=== PATIENT | female | born 1990 | race Hispanic/Latino ===

== ENCOUNTER 2018-04-15 06:31 | Day surgery (SDC) | payer BC ==
[2018-04-14 16:53] LABS: Urine Appearance CLEAR; Urine Bilirubin NEGATIVE (NEG); Urine Blood NEGATIVE (NEG); Urine Color YELLOW; Urine Glucose NEGATIVE (NEG); Urine Protein NEGATIVE (NEG); Urine Specific Gravity >=1.030 (1.005-1.030); Urine pH 7.5 (5.0-7.0)
[2018-04-14 16:56] LABS: Urine Microscopic Reflex NO UMIC
[2018-04-14 16:58] LABS: Absolute Lymphocytes (CBC) 1.8 K/uL (0.7-4.9); Absolute Monocytes 0.6 K/uL (0.1-1.3); Absolute Neutrophil 4.7 K/uL (1.8-8.0); Basophils % 0.4 % (0-1.3); Eosinophils % 1.2 % (0-4.4); Hematocrit 39.2 % (36.0-45.0); MCH 27.5 pg (27.0-35.0); MCV 81.4 fL (80-100); MPV 10.3 fL (7.6-11.3); Monocytes % 8.2 % (3.3-12.3); RBC Red Blood Cell Count 4.81 M/uL (3.86-4.86)
[2018-04-14 16:59] LABS: Specific Gravity > 1.030 (1.005-1.030)
[2018-04-14 17:01] LABS: Protime INR 1.05
--- NOTE | 2018-04-14 17:55 | PREOPHP ---
Date of Admission: 04/14/2018 The patient has an impacted IUD that has been possible to get out into the office. We are taking her first to surgery for hysteroscopy, possible D and C. Full discussion about infection, blood loss, a nesthetic complications, injury to bladder, bowel, ureter, postoperative complications, clots in the legs. The patient knows fully well this does not constitute all the possible problems that could occ ur during or following surgery. After the procedure, the patient wants to get , so she will wait 1 month, use condoms for control, and then try to get after a month. Family History: Mother with breast cancer at the age of 49, this has been discussed with the patient . Maternal grandmother with hypertension and diabetes. Allergies: THE PATIENT HAS NO ALLERGIES. Medications: No medicines prior to admission. Past Surgical History: She has had a LEEP procedure before, but otherwise nothing else. Social History: She does not smoke. Physical Examination: HEENT: Clear. Pupils equal, round, and reactive to light and accommodation. Conjunctivae well perf used. No oral, lingual, or buccal lesions. Chest and Lungs: Clear. Heart: Without murmurs, thrills, heaves, or rubs. Breasts: Not examined. Abdomen: Soft. Uterus is small, firm, freely mobile, nontender. Both adnexa clear. Laminaria tent inserted and packing placed. Assessment And Plan: We will proceed with hysteroscopy, possible D and C tomorrow for removal of IUD . MELINA/NIKOLAS Voice ID: [id number]
[2018-04-15] MEDS ORDERED: Ringers Lactate 1,000 ML IV ONE (06:44)
[2018-04-15] MEDS ORDERED: CEFAZOLIN/SWI 1gm 1 GM/10 ML SYR ONE (06:45)
[2018-04-15] MEDS ORDERED: PROPOFOL 200 MG/20 ML VIAL IV ONE (07:04)
[2018-04-15] MEDS ORDERED: FENTANYL CITR 100 MCG/2 ML ONE (07:04)
[2018-04-15] MEDS ORDERED: MIDAZOLAM HCL 2 MG/2 ML INJ ONE (07:04)
[2018-04-15] MEDS ORDERED: LIDOCAINE 1% MPF 5 ML VIAL ONE (07:04)
[2018-04-15] MEDS ORDERED: SILVER NITRATE 1 APPL TOP ONE (07:13)
[2018-04-15] MEDS ORDERED: NA CHLORIDE 0.9% 1,000 ML ONE (07:13)
[2018-04-15] MEDS ORDERED: LIDOCAINE 1% W/EPI 1:100,000 MDV 50 ML VIAL ONE (07:13)
[2018-04-15] MEDS ORDERED: KETOROLAC 30 MG/ML INJ ONE (07:37)
[2018-04-15] MEDS ORDERED: ONDANSETRON HCL 40 MG/20 ML VIAL ONE (07:38)
[2018-04-15 10:47] VITALS: BP 110/64; TEMP 97.4; O2SAT 98
--- NOTE | 2018-04-15 12:09 | DS ---
Date of Discharge: 04/15/2018 Hospital Course: A 27-year-old female with retained IUD. Full preoperative counseling. The patient underwent hysteroscopy, D and C for removal of IUD. Blood loss was 50 cc or less. The patient was given 1 g of Ancef for prophylaxis. She will be monitored for the next 2 hours. If stable at that p oint dismissed to return to my office next week for followup. To report any temperature elevation of 100 degrees or greater, severe pain, heavy bleeding, or any other type of abnormality. She plans to get in the future. After about a month of using condoms and 1 normal menstrual period, she will attempt . Final Diagnoses: Retained intrauterine device-Mirena, hysteroscopy, dilation and curettage for remov al. MELINA/NIKOLAS Voice ID: [id number] Report ID: [id number]
--- NOTE | 2018-04-15 12:09 | OP ---
Surgeon: Herman Melendez MD A 27-year-old female, retained IUD, unable to remove in the office. Full preoperative counseling con cerning procedure and possible complications including infection, blood loss, anesthetic complication s, injury to bladder, bowel, ureter, uterus, postoperative complications, clots in legs, and pneumoni a. The patient knows fully well this does not constitute all the possible problems that could occur during or following surgery. Description Of Procedure: 1 g of Ancef for preop prophylaxis. General anesthesia was employed. Elmer eout was performed. The laminaria tent and packs which had been placed the evening prior were remove d. Minimal dilation was necessary. A tenaculum was placed on the anterior cervical lip. Hysterosco pies were somewhat clouded. There was slight bloody discharge. With light curettement, we then were able to remove the IUD without difficulty. Tenaculum lorenzo on the cervix were cauterized with silve r nitrate. The patient tolerated all procedures well. She was transferred back to the recovery room in good condition. Final Diagnoses: Retained intrauterine device-Mirena, hysteroscopy, dilation and curettage for remov al. MELINA/NIKOLAS Voice ID: [id number] Report ID: [id number]
== END 2018-04-15 10:15 | disposition home or self-care (01) ==
LOC: OR 06:31
PROVIDERS: ATTEND Specialist
PROC: 0UC98ZZ Extirpation of Matter from Uterus, Via Natural or Artificial Opening Endoscopic (ICD-10-PCS; principal; 2018-04-15 07:30)
DX: Z30.432 Encounter for removal of intrauterine contraceptive device (principal); Z80.3 Family history of malignant neoplasm of breast
CPT/HCPCS: 36415; 81003; 81025; 85025; 85610; 85730; 88300; J0690; J2250; J2405; J3010; J7030

== ENCOUNTER 2018-07-15 14:25 | Emergency (ER) | payer BC, OTHER ==
[2018-07-15 15:49] LABS: Urine Blood TRACE (NEG); Urine Glucose NEGATIVE (NEG); Urine Protein 1+ (NEG)
[2018-07-15 15:54] LABS: Urine Bacteria <20 /HPF (<20); Urine Culture Reflex Order NOT NEEDED; Urine RBC <5 /HPF (NONE SEEN)
[2018-07-15 16:02] LABS: Absolute Lymphocytes (CBC) 1.7 K/uL (0.7-4.9); Absolute Monocytes 0.8 K/uL (0.1-1.3); Absolute Neutrophil 5.7 K/uL (1.8-8.0); Basophils % 0.4 % (0-1.3); Eosinophils % 0.2 % (0-4.4); Hematocrit 40.5 % (36.0-45.0); Lymphocytes % 20.5 % (15.3-44.8); MCH 27.5 pg (27.0-35.0); MCV 82.4 fL (80-100); MPV 11.2 fL (7.6-11.3); Monocytes % 9.6 % (3.3-12.3); RBC Red Blood Cell Count 4.91 M/uL (3.86-4.86)
[2018-07-15] MEDS ORDERED: ONDANSETRON 4 MG/2 ML VIAL ONE (16:04)
[2018-07-15] MEDS ORDERED: NA CHLORIDE 0.9% 1,000 ML ONE (16:04)
[2018-07-15 16:37] LABS: ALT/SGPT 39 U/L (12-78); AST/SGOT 25 U/L (15-37); Alkaline Phosphatase 68 U/L (45-117); BUN Blood Urea Nitrogen 10 mg/dL (7-18); Bicarbonate 22 mmol/L (21-32); Bilirubin Direct 0.2 mg/dL (0-0.2); Bilirubin Total 0.4 mg/dL (0.2-1.0); Glucose Level 79 mg/dL (74-106); HCG, Quantitative 158375 mIU/mL (1-3); Lipase 197 U/L (73-393); Magnesium 1.8 mg/dL (1.8-2.4); Potassium 3.6 mmol/L (3.5-5.1); Protein, Total 8.2 g/dL (6.4-8.2); Sodium Level 138 mmol/L (136-145)
--- NOTE | 2018-07-15 18:55 | EDPHYS ---
Physician Documentation [facility] Name: Ludy Carlos Age: 27 yrs Sex: Female : 1990 Arrival Date: 07/15/2018 Time: 14:30 Bed 27 Private MD: ED Physician Jhonathan Almanza HPI: 07/15 15:20 This 27 yrs old Female presents to ER via Ambulatory with complaints of 9 wks cp , Vomiting. 15:20 The patient presents to the emergency department with nausea and vomiting, that started cp 2 weeks ago, and is intermittent, described as bilious. course: care: private OB physician, Dr. Melendez, Leakage of Fluid: none appreciated, Ultrasound: the patient has not had an ultrasound, Risk/complications: no obvious risks or complications are appreciated. Previous pregnancies: in previous pregnancies patient has had vaginal delivery, no complications. Associated signs and symptoms: Pertinent positives: vaginal discharge, Pertinent negatives: abdominal pain, chest pain, diarrhea, fever, vaginal bleeding. 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 - Social history:: Smoking status: Patient/guardian denies using tobacco. - Ebola Screening: : Patient negative for fever greater than or equal to 101.5 degrees Fahrenheit, and additional compatible Ebola Virus Disease symptoms Patient denies exposure to infectious person Patient denies travel to an Ebola-affected area in the 21 days before illness onset No symptoms or risks identified at this time. ROS: 15:30 Constitutional: Negative for body aches, chills, fever. cp 15:30 Eyes: Negative for injury, pain, redness, and discharge. cp 15:30 ENT: Negative for drainage from ear(s), ear pain, sore throat, difficulty swallowing, difficulty handling secretions. 15:30 Cardiovascular: Negative for chest pain, edema. 15:30 Respiratory: Negative for cough, shortness of breath, wheezing. 15:30 Abdomen/GI: Positive for nausea, vomiting, Negative for abdominal pain, diarrhea, constipation, black/tarry stool, rectal bleeding. 15:30 Skin: Negative for cellulitis, rash. 15:30 Neuro: Negative for altered mental status, headache, weakness. 15:30 All other systems are negative. Exam: 15:45 Constitutional: The patient appears in no acute distress, alert, awake, non-toxic, well cp developed, well nourished. 15:45 Head/Face: Normocephalic, atraumatic. cp 15:45 Eyes: Periorbital structures: appear normal, Pupils: equal, round, and reactive to light and accomodation, Extraocular movements: intact throughout, Conjunctiva: normal, no exudate, no injection, Sclera: no appreciated abnormality, Lids and lashes: appear normal, bilaterally. 15:45 ENT: External ear(s): are unremarkable, Ear canal(s): are normal, clear, TM's: dullness, bilaterally, Nose: is normal, Mouth: Lips: moist, Oral mucosa: moist, Posterior pharynx: is normal, airway is patent, no erythema, no exudate, Voice: is normal. 15:45 Neck: ROM/movement: is normal, is supple, without pain, no range of motions limitations, no nuchal rigidity. 15:45 Chest/axilla: Inspection: normal, Palpation: is normal, no crepitus, no tenderness. 15:45 Cardiovascular: Rate: tachycardic, Rhythm: regular, Edema: is not appreciated, JVD: is not appreciated. 15:45 Respiratory: the patient does not display signs of respiratory distress, Respirations: normal, no use of accessory muscles, no retractions, no splinting, no tachypnea, labored breathing, is not present, Breath sounds: are clear throughout, no decreased breath sounds, no stridor, no wheezing. 15:45 Abdomen/GI: Inspection: abdomen appears normal, Bowel sounds: active, all quadrants, Palpation: abdomen is soft and non-tender, in all quadrants, rebound tenderness, is not appreciated, voluntary guarding, is not appreciated, involuntary guarding, is not appreciated. 15:45 Back: ROM is normal, CVA tenderness, is absent. 15:45 Skin: cellulitis, is not appreciated, no rash present. 15:45 Neuro: Orientation: to person, place \T\ time. Mentation: is normal, Cerebellar function: is grossly normal, Motor: is normal, Sensation: is normal. Vital Signs: 15:06 BP 142 / 92; Pulse 123; Resp 20; Temp 98.9; Pulse Ox 98% on R/A; Weight 52.62 kg; aj Height 5 ft. 1 in. (154.94 cm); 16:11 BP 119 / 80; Pulse 83; Resp 16; Pulse Ox 100% on R/A; dh3 16:13 BP 113 / 75; Pulse 92; Resp 17; Pulse Ox 100% on R/A; dh3 16:15 BP 116 / 79; Pulse 98; Resp 18; Pulse Ox 100% on R/A; dh3 17:07 BP 119 / 79; Pulse 92; Resp 17; Pulse Ox 100% on R/A; rv 18:48 BP 122 / 79; Pulse 93; Resp 18; Pulse Ox 100% on R/A; rv 19:13 BP 120 / 80; Pulse 96 MON; Resp 19 S; Pulse Ox 100% on R/A; rv 15:06 Body Mass Index 21.92 (52.62 kg, 154.94 cm) aj MDM: 15:12 Patient medically screened. cp 16:00 Differential diagnosis: dehydration, hyperemesis , electrolyte abnormality. cp 18:35 Data reviewed: vital signs, nurses notes, lab test result(s), radiologic studies, cp ultrasound. 18:53 Counseling: I had a detailed discussion with the patient and/or guardian regarding: the cp historical points, exam findings, and any diagnostic results supporting the discharge/admit diagnosis, lab results, radiology results, the need for outpatient follow up, an OB/Gyne specialist, to return to the emergency department if symptoms worsen or persist or if there are any questions or concerns that arise at home. 18:53 Response to treatment: the patient's symptoms have markedly improved after treatment, cp VSS. Nausea markedly improved. No vomiting observed while in ED. Will discharge to home for continued monitoring. 07/15 15:18 Order name: Urine Microscopic Only; Complete Time: 16:03 dh3 07/15 15:23 Order name: Basic Metabolic Panel; Complete Time: 16:42 cp 07/15 16:43 Interpretation: Normal except: CRE 0.50. 07/15 15:23 Order name: CBC with Diff; Complete Time: 16:42 07/15 16:43 Interpretation: Normal except: RBC 4.91. 07/15 15:23 Order name: Creatinine for Radiology; Complete Time: 16:42 07/15 18:30 Interpretation: Reviewed. 07/15 15:23 Order name: Hepatic Function; Complete Time: 16:42 07/15 17:45 Interpretation: Normal except: GLOB 4.2; A/G 1.0. 07/15 15:23 Order name: Lipase; Complete Time: 16:42 07/15 15:23 Order name: Beta hcg; Complete Time: 16:42 07/15 18:31 Interpretation: HCGQ [id number]; Reviewed. 07/15 15:34 Order name: Urine Dipstick--Ancillary (enter results); Complete Time: 16:03 07/15 16:03 Interpretation: Normal except: UKET 4+; UBLD TRACE; UPROT 1+. 07/15 15:34 Order name: Urine --Ancillary (enter results) 07/15 15:56 Order name: Magnesium; Complete Time: 16:42 EDMS 07/15 18:48 Order name: Matter Eval Tm 1 EDMS 07/15 15:23 Order name: Urine Dipstick-Ancillary (obtain specimen); Complete Time: 18:50 07/15 15:23 Order name: Urine Test (obtain specimen); Complete Time: 18:50 07/15 15:23 Order name: Orthostatics; Complete Time: 16:17 07/15 15:23 Order name: IV Saline Lock; Complete Time: 17:16 07/15 15:23 Order name: Labs collected and sent; Complete Time: 17:16 07/15 17:09 Order name: PO challenge; Complete Time: 18:47 cp Administered Medications: 16:00 Drug: Zofran 4 mg Route: PO; tl3 18:18 Follow up: Response: No adverse reaction rv 16:00 Drug: NS 0.9% 1000 ml Route: IV; Rate: 1 bolus; Site: right antecubital; tl3 18:18 Follow up: IV Status: Completed infusion rv 18:47 Follow up: IV Status: Completed infusion rv 17:30 Drug: NS 0.9% 1000 ml Route: IV; Rate: 1 bolus; Site: right antecubital; rv 18:47 Follow up: IV Status: Completed infusion rv Disposition: 07/15/18 18:54 Discharged to Home. Impression: Other specified related conditions, first trimester, Nausea and vomiting. - Condition is Stable. - Discharge Instructions: First Trimester of . - Prescriptions for Vitamin 27- 0.8 mg Oral Tablet - take 1 tablet by ORAL route once daily; 30 tablet. Phenergan 25 mg Rectal Suppository - insert 1 suppository by RECTAL route every 6 hours As needed; 12 suppository. promethazine 25 mg Oral Tablet - take 1 tablet by ORAL route every 6 hours As needed; 20 tablet. - Medication Reconciliation Form, Thank You Letter, Antibiotic Education, Prescription Opioid Use form. - Follow up: Herman Melendez MD; When: 07/18/2018; Reason: Recheck today's complaints. - Problem is new. - Symptoms have improved. Addendum: 07/18/2018 06:57 Co-signature as Attending Physician, Jhonathan Almanza MD I agree with the assessment and c mclean plan of care. Signatures: Dispatcher [employer] EDMarlyn Terry RN RN aj Anderson, Corey, MD MD cha Page, Corey, PA PA cp Rafaela Shin, JASON RN tl3 Silas Mason RN RN rv Corrections: (The following items were deleted from the chart) 07/15 15:56 15:41 MAGNESIUM+C.LAB.BRZ ordered. EDNE EDMS 18:48 17:09 OB Limited+US.RAD.BRZ ordered. EDNE EDMS 19:16 18:54 07/15/2018 18:54 Discharged to Home. Impression: Other specified rv related conditions, first trimester; Nausea and vomiting. Condition is Stable. Forms are Medication Reconciliation Form, Thank You Letter, Antibiotic Education, Prescription Opioid Use. Follow up: Herman Melendez; When: 07/18/2018; Reason: Recheck today's complaints. Problem is new. Symptoms have improved. cp
--- NOTE | 2018-07-15 18:55 | ER ---
Nurse's Notes [facility] Name: Ludy Carlos Age: 27 yrs Sex: Female : 1990 Arrival Date: 07/15/2018 Time: 14:30 Bed 27 Private MD: Diagnosis: Other specified related conditions, first trimester;Nausea and vomiting Presentation: 07/15 15:04 Presenting complaint: Patient states: Increased vomiting for 2 weeks with rapid HR and aj SOB. Patient is 9 weeks . Transition of care: patient was not received from another setting of care. Onset of symptoms was July 07, 2018. Risk Assessment: Do you want to hurt yourself or someone else? Patient reports no desire to harm self or others. Initial Sepsis Screen: Does the patient meet any 2 criteria? No. Patient's initial sepsis screen is negative. Does the patient have a suspected source of infection? No. Patient's initial sepsis screen is negative. Care prior to arrival: None. 15:04 Method Of Arrival: Ambulatory aj 15:04 Acuity: GIOVANNY 2 aj Triage Assessment: 15:06 General: Appears in no apparent distress. comfortable, Behavior is calm, cooperative, aj appropriate for age. Pain: Denies pain. Neuro: Level of Consciousness is awake, alert, obeys commands, Oriented to person, place, time, situation, Appropriate for age. Respiratory: Airway is patent Respiratory effort is even, unlabored, Respiratory pattern is regular, symmetrical. GI: Abdomen is flat, non-distended, Reports nausea, vomiting. : Reports vaginal bleeding that is brown, spotty. Derm: Skin is intact, is healthy with good turgor, Skin is pink, warm \T\ dry. normal. 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 - Social history:: Smoking status: Patient/guardian denies using tobacco. - Ebola Screening: : Patient negative for fever greater than or equal to 101.5 degrees Fahrenheit, and additional compatible Ebola Virus Disease symptoms Patient denies exposure to infectious person Patient denies travel to an Ebola-affected area in the 21 days before illness onset No symptoms or risks identified at this time. Screenin:22 Abuse screen: Denies threats or abuse. Denies injuries from another. Nutritional tl3 screening: No deficits noted. Tuberculosis screening: No symptoms or risk factors identified. Fall Risk None identified. Assessment: 16:00 General: Appears in no apparent distress. comfortable, Behavior is calm, cooperative. tl3 16:00 Pain: Denies pain. Neuro: Level of Consciousness is awake, alert, obeys commands, tl3 Oriented to person, place, time, situation. Cardiovascular: Capillary refill < 3 seconds. Respiratory: Airway is patent. GI: Abdomen is round. : No signs and/or symptoms were reported regarding the genitourinary system. EENT: No signs and/or symptoms were reported regarding the EENT system. Derm: Skin is intact. 17:08 Reassessment: Patient appears in no apparent distress at this time. Patient and/or rv family updated on plan of care and expected duration. Pain level reassessed. Patient is alert, oriented x 3, equal unlabored respirations, skin warm/dry/pink. 18:49 Reassessment: Patient appears in no apparent distress at this time. Patient and/or rv family updated on plan of care and expected duration. Pain level reassessed. Patient is alert, oriented x 3, equal unlabored respirations, skin warm/dry/pink. Vital Signs: 15:06 BP 142 / 92; Pulse 123; Resp 20; Temp 98.9; Pulse Ox 98% on R/A; Weight 52.62 kg; aj Height 5 ft. 1 in. (154.94 cm); 16:11 BP 119 / 80; Pulse 83; Resp 16; Pulse Ox 100% on R/A; dh3 16:13 BP 113 / 75; Pulse 92; Resp 17; Pulse Ox 100% on R/A; dh3 16:15 BP 116 / 79; Pulse 98; Resp 18; Pulse Ox 100% on R/A; dh3 17:07 BP 119 / 79; Pulse 92; Resp 17; Pulse Ox 100% on R/A; rv 18:48 BP 122 / 79; Pulse 93; Resp 18; Pulse Ox 100% on R/A; rv 19:13 BP 120 / 80; Pulse 96 MON; Resp 19 S; Pulse Ox 100% on R/A; rv 15:06 Body Mass Index 21.92 (52.62 kg, 154.94 cm) ED Course: 14:30 Patient arrived in ED. mr 15:06 Triage completed. aj 15:06 Arm band placed on left wrist. Patient placed in an exam room. aj 15:12 Jhonathan Clifford PA is PHCP. cp 15:12 Jhonathan Almanza MD is Attending Physician. cp 15:18 Urine collected: clean catch specimen, boris colored. dh3 16:00 No provider procedures requiring assistance completed. Inserted saline lock: 20 gauge rv in right antecubital area, using aseptic technique. Blood collected. 16:22 Patient has correct armband on for positive identification. Bed in low position. Call tl3 light in reach. Side rails up X 1. Adult w/ patient. Pulse ox on. NIBP on. 18:31 Ultrasound completed. Patient tolerated well. Notified CORRECTIONAL OFFICER/SAMIA arrington. sg3 18:49 Matter Eval Tm 1 In Process Unspecified. EDMS 18:53 Herman Melendez MD is Referral Physician. cp 19:15 IV discontinued, bleeding controlled, No redness/swelling at site. Pressure dressing rv applied. Administered Medications: 16:00 Drug: Zofran 4 mg Route: PO; tl3 18:18 Follow up: Response: No adverse reaction rv 16:00 Drug: NS 0.9% 1000 ml Route: IV; Rate: 1 bolus; Site: right antecubital; tl3 18:18 Follow up: IV Status: Completed infusion rv 18:47 Follow up: IV Status: Completed infusion rv 17:30 Drug: NS 0.9% 1000 ml Route: IV; Rate: 1 bolus; Site: right antecubital; rv 18:47 Follow up: IV Status: Completed infusion rv Outcome: 18:54 Discharge ordered by . cp 19:15 Discharged to home ambulatory. rv 19:15 Condition: good 19:15 Discharge instructions given to patient, Instructed on discharge instructions, follow up and referral plans. medication usage, Demonstrated understanding of instructions, follow-up care, medications, Prescriptions given X 3. 19:16 Patient left the ED. rv Signatures: Dispatcher [employer] EDMS Marlyn Dunbar, RN RN ty [place], Rylie mr Jhonathan Clifford, Addis Kirk cp 3 Letty Mckenzie 3 Rafaela Shin RN RN 3 Silas Mason RN RN rv Corrections: (The following items were deleted from the chart) 18:48 18:47 To radiology for OB Limited+US.RAD.BRZ. rv EDMS
--- NOTE | 2018-07-15 20:05 | RAD REPORT ---
EXAM DESCRIPTION: US - Matter Sathya Tm 1 - 07/15/2018 6:47 pm CLINICAL HISTORY: , vomiting COMPARISON: None. FINDINGS: A single intrauterine gestation is identified. Heart rate is 166 bpm. No hematoma, mass or other suspicious finding. [place]-rump length measurement corresponds to a 8 W 4 D age. YULISA is 019. No suspicion for placental abnormality. Gestational sac has a normal configuration. Yolk sac is identifiable. IMPRESSION: Single 8 W 4 D intrauterine gestation. YULISA is 02/20/2019.
[2018-07-15 20:55] VITALS: TEMP 98.9
[2018-07-15 20:56] VITALS: O2SAT 100
[2018-07-15 21:02] VITALS: BP 120/80
== END 2018-07-15 19:16 | disposition home or self-care (01) ==
LOC: ER 14:25
DX: O21.9 Vomiting of pregnancy, unspecified (principal); Z3A.09 9 weeks gestation of pregnancy
CPT/HCPCS: 36415; 76801; 80048; 80076; 81003; 81015; 81025; 83690; 83735; 84702; 85025; 96360; 96361; 99284; J2405; J7030

== ENCOUNTER 2019-02-14 04:07 | Inpatient (IN) | payer OTHER ==
[2019-02-14] MEDS ORDERED: MEPERIDINE HCL 25 MG/0.5 ML IV PRN (04:11)
[2019-02-14] MEDS ORDERED: MIDAZOLAM HCL 2 MG/2 ML INJ IV PRN (04:11)
[2019-02-14] MEDS ORDERED: Ringers Lactate 1,000 ML IV PRN (04:11)
[2019-02-14] MEDS ORDERED: BUTORPHANOL 1 MG/ML INJ IV PRN (04:11)
[2019-02-14] MEDS ORDERED: PROMETHAZINE 25 MG/ML VIAL IM PRN (04:11)
[2019-02-14] MEDS ORDERED: CARBOPROST TROME 250 MCG/ML IM PRN (04:11)
[2019-02-14 04:27] VITALS: BMI 24.5
[2019-02-14] MEDS ORDERED: OXYTOCIN/LR 20 UNIT/1,000 ML BAG IV SCH ×2 (05:00)
[2019-02-14] MEDS ORDERED: Ringers Lactate 1,000 ML IV SCH (05:00)
[2019-02-14 05:16] LABS: RPR Titer ND
[2019-02-14 05:23] LABS: Absolute Lymphocytes (CBC) 2.1 K/uL (0.7-4.9); Basophils % 0.3 % (0-1.3); Eosinophils % 0.9 % (0-4.4); Hematocrit 35.2 % (36.0-45.0); Lymphocytes % 29.6 % (15.3-44.8); MPV 10.6 fL (7.6-11.3); Monocytes % 9.5 % (3.3-12.3); RBC Red Blood Cell Count 4.05 M/uL (3.86-4.86)
[2019-02-14 06:12] LABS: Urine Appearance CLEAR; Urine Bilirubin NEGATIVE (NEG); Urine Blood NEGATIVE (NEG); Urine Color YELLOW; Urine Glucose NEGATIVE (NEG); Urine Protein NEGATIVE (NEG)
[2019-02-14 06:13] LABS: Urine Microscopic Reflex NO UMIC
[2019-02-14] MEDS ORDERED: LIDOCAINE 1% 20 ML MDV ONE (11:48)
[2019-02-14] MEDS ORDERED: METHYLERGONOVINE 0.2MG/ML AMP IM ONE (11:53)
--- NOTE | 2019-02-14 12:17 | PREOPHP ---
Date of Admission: 02/14/2019 This 28-year-old 4, para 2, at 39 weeks and 4 days according to her last menstrual period. Patient has history of gestational diabetes mellitus. 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 Erendira regularly. FHT is normal, reactive. Rupture of membranes, clear fluid. Anticipate delivery later today. The patient is also requested and been approved for tubal s terilization which will be done either today or tomorrow depending on how expeditiously she delivers. Full discussion about tubals, including infection, blood loss, anesthetic complications, injury to bladder, bowel, ureter, postoperative complications, clots in legs, pneumonia, failure rate, tubal ec topic , difficulty in tubal reversal, and essentially permanence of procedure. The patient knows fully well these not constitute all the possible problems that could occur during or following surgery. We will proceed . MELINA/NIKOLAS Voice ID: [id number]
[2019-02-14] MEDS ORDERED: METOCLOPRAMIDE 10 MG/2mL INJ ONE (12:55)
[2019-02-14] MEDS ORDERED: FAMOTIDINE 20 MG/2 ML VIAL IV ONE (12:55)
[2019-02-14] MEDS ORDERED: NA CIT/CITRIC AC 30 ML ORAL UDC ONE (12:56)
[2019-02-14] MEDS ORDERED: MIDAZOLAM HCL 2 MG/2 ML INJ ONE (13:21)
[2019-02-14] MEDS ORDERED: PROPOFOL 200 MG/20 ML VIAL IV ONE (13:21)
[2019-02-14] MEDS ORDERED: LIDOCAINE 2% MPF 5 ML VIAL ONE (13:21)
[2019-02-14] MEDS ORDERED: FENTANYL CITR 100 MCG/2 ML ONE (13:21)
[2019-02-14] MEDS ORDERED: ROCURONIUM 50 MG/5 ML VIAL IV ONE (13:22)
[2019-02-14] MEDS ORDERED: GLYCOPYRROLATE 0.2 MG/ML SYR ONE (13:56)
[2019-02-14] MEDS ORDERED: KETOROLAC 30 MG/ML INJ ONE (13:56)
[2019-02-14] MEDS ORDERED: NEOSTIGMINE 1 MG/ML -10 ML VIAL ONE (13:57)
--- NOTE | 2019-02-14 16:45 | PN ---
Ludy Carlos was checked about 2 hours ago is noted to be 3 cm. She is on 16 milliunits of Pitocin cari every 2 minutes or so. FHTs are normal and reactive. She is now 8 cm 100% effaced, 0 to +1 station. Anticipate delivery relatively soon. MELINA/NIKOLAS Voice ID: [id number] Report ID: [id number]
--- NOTE | 2019-02-14 18:06 | OP ---
Surgeon: Herman Melendez MD A 28-year-old 4, para 2, AB 1, at 39 weeks 4 days, 1-1.5 cm on admission. Rupture of membran es, clear fluid. The patient received Stadol 1 mg IV, Phenergan 25 mg IM x1. After achieving 3 cm, went rapidly to complete. Second stage of 10 minutes or less. Spontaneous vaginal delivery of an es timated 7-pound plus female, Apgars 9 and 9. No episiotomy. No laceration. Grant delivery of the placenta, which was inspected and noted to be intact and normal. Less than 350 cc blood loss. Rh p ositive, immune to Rubella. Negative beta strep screen. Tubal sterilization pending-has been approv ed. Full preoperative counseling concerning procedure and possible complications, including infectio n, blood loss, anesthetic complications; injury to bladder, bowel, or ureter; postoperative complicat ions, clots in legs, pneumonia, ectopic , tubal failure rate, and difficulty in tubal revers al with essentially permanence of the procedure. The patient knows fully well these not constitute a ll the possible problems that could occur during or following surgery. We will keep her n.p.o. until after surgery. One gram of Ancef ordered for prophylaxis. MELINA/NIKOLAS Voice ID: [id number] Report ID: [id number]
--- NOTE | 2019-02-14 19:28 | OP ---
Surgeon: Herman Melendez MD A 28-year-old, multiparous female for tubal sterilization. Full preoperative counseling c oncerning procedure and possible complications, including infection, blood loss, anesthetic complicat ions; injury to bladder, bowel, ureter; postoperative complications, clots in legs, pneumonia. The p atient knows fully well this does not constitute all the possible problems that could occur during or following surgery. Tubal failure rate, tubal ectopic , difficulty in tubal reversal, and e ssentially permanence of procedure discussed. General anesthesia, endotracheal intubation. After pr epping and draping, time-out was performed. Subumbilical elliptical incision was created with a scal pel. The incision was carried to the fascia. The fascia was incised and sutured with 0 Vicryl and t agged. The left tube was grasped in the midportion, traced out to the fimbriated portion. A knuckle of tube was produced, and a free hand tie x3 was placed with 2-0 plain. Segment of tube was removed , the tubal lumen, which were exposed, were fulgurated. No further bleeding was seen. The tube was allowed to fall away. A similar procedure was then carried out on the contralateral side without tro uble. The fascia was then closed using the stay sutures that had been placed previously. The patien t is very thin. No subcutaneous stitches necessary. 4-0 Vicryl for subcuticular closure within Derm abond. Minimal blood loss. One gram of Ancef for prophylaxis. Tolerated all procedures well. [place] sferred back to the recovery room in good condition. She will be monitored there for an hour and the n sent back up stairs to the second floor for her normal recovery. Will go home tomorrow. Final Diagnoses: Multiparity, tubal sterilization, modified [place], general anesthetic. NBC/MODL Voice ID: [id number] Report ID: [id number]
[2019-02-14] MEDS ORDERED: KETOROLAC 30 MG/ML INJ IV ONE (20:12)
[2019-02-14] MEDS ORDERED: PROMETHAZINE 25 MG/ML VIAL IM ONE (20:13)
[2019-02-14] MEDS ORDERED: MEPERIDINE HCL 25 MG/0.5 ML IV ONE (20:13)
[2019-02-14 20:32] LABS: RPR (Rapid Plasma Reagin) NON-REACT (NON-REACT)
[2019-02-15 08:11] VITALS: O2SAT 98
[2019-02-15 12:23] VITALS: BP 114/55; TEMP 99.1
--- NOTE | 2019-02-15 14:48 | DS ---
Date of Discharge: 02/15/2019 A 28-year-old, 4, para 2, AB 1, 39 weeks and 4 days at time of delivery. Uneventful delivery of a 7-pound, 8-ounce female. Apgars 9 and 9. No episiotomy. No lacerations. Had Stadol 1 mg IV, Phenergan 25 mg IM during the labor, otherwise used Lamaze breathing techniques to best advantage. Schultze delivery of the placenta, which was inspected and noted to be intact and normal. 350 cc or less blood loss. Rh positive, immune to Rubella. Negative beta strep screen. underwent tubal ligation, modified [place], general anesthesia, with minimal blood loss. Postoperatively afebr ile, ambulating and voiding. Lochia is normal. Will be dismissed later today to report back to my o ffice in 6 weeks for followup, to report any temperature elevation of 100 degrees or greater, severe pain, heavy bleeding, or any other type of abnormalities. Dismissed with tramadol for analgesia, dorothy mcgillugh she may elect to take Motrin instead. She has had her Tdap immunization during the . Final Diagnoses: Term intrauterine , 39 weeks 4 days, vaginal delivery. tubal s terilization. General anesthetic. MELINA/NIKOLAS Voice ID: [id number] Report ID: [id number]
[2019-02-16 19:20] LABS: HBsAG Nonreactive (Nonreactive)
== END 2019-02-15 14:15 | disposition home or self-care (01) | DRG 797 ==
LOC: 2ND-WC 04:07
PROVIDERS: ADMIT Specialist; ATTEND Specialist
PROC: 0UB70ZZ Excision of Bilateral Fallopian Tubes, Open Approach (ICD-10-PCS; 2019-02-14)
PROC: 10E0XZZ Delivery of Products of Conception, External Approach (ICD-10-PCS; principal; 2019-02-14 13:00)
DX: O24.429 Gestational diabetes mellitus in childbirth, unspecified control (principal); O99.113 Other diseases of the blood and blood-forming organs and certain disorders involving the immune mechanism complicating pregnancy, third trimester; Z37.0 Single live birth; Z3A.39 39 weeks gestation of pregnancy; D56.3 Thalassemia minor; Z30.2 Encounter for sterilization
CPT/HCPCS: 36415; 81003; 85025; 86592; 86901; 87340; 88302; 88305; J0595; J2210; J2250; J2550; J2590; J2704; J2710; J2765; J3010